=== PATIENT | female | born 1980 | race Hispanic/Latino ===

== ENCOUNTER 2020-08-04 05:30 | Observation (INO) | payer OTHER ==
[2020-08-03 11:12] LABS: BASOPHILS % (AUTO) 0.5 % (0.0-5.0); EOSINOPHILS % (AUTO) 2.3 % (0.0-8.0); HEMATOCRIT 43.9 % (36-48); LYMPHOCYTES % (AUTO) 28.7 % (21.0-51.0); MEAN CORPUSCULAR HEMOGLOBIN 29.5 pg (27.0-33.0); MEAN CORPUSCULAR VOLUME 89.2 fL (79-99); MONOCYTES % (AUTO) 6.1 % (3.0-13.0); NEUTROPHILS % (AUTO) 61.9 % (40.0-77.0); PLATELET COUNT (AUTO) 327 K/uL (130-400); RED BLOOD CELL COUNT(AUTO) 4.92 MIL/uL (4.00-5.50); RED CELL DISTRIBUTION WIDTH 12.1 % (11.0-15.5); WHITE BLOOD COUNT (AUTO) 6.1 K/uL (4.8-10.8)
[2020-08-03 15:28] VITALS: BP 157/74
[2020-08-04] VITALS (23 sets, daily range): BP systolic 103–158; BP diastolic 50–86
[~2020-08-04] VITALS: Ht 165.1 cm; Wt 93.3 kg
[2020-08-04] MEDS: CLINDAMYCIN 600MG IN 0.9% SOD 50 ML IV SCH ×2 (05:00→08:20)
[2020-08-04] MEDS: LEVOFLOXACIN 500 MG/D5W 100 ML 100 ML IV SCH ×3 (05:00→09:00)
[~2020-08-04 05:30] MED LIST: ATOR10TA PO; ERGO400C PO
[2020-08-04] MEDS ORDERED: LACTATED RINGERS 1000ML 1,000 ML IV ONE (06:58)
[2020-08-04] MEDS ORDERED: LIDOCAINE PF 2% 5ML ABBOJECT ONE (07:54)
[2020-08-04] MEDS ORDERED: ONDANSETRON HCL 4 MG/2 ML VIAL ONE (07:55)
[2020-08-04] MEDS ORDERED: MIDAZOLAM HCL 1 MG/ML 2ML VIAL ONE (07:55)
[2020-08-04] MEDS ORDERED: ROCURONIUM 10MG/1ML SYR 10 MG/ML ML ONE (07:55)
[2020-08-04] MEDS ORDERED: PROPOFOL 10 MG/ML 20ML VIAL IV ONE (07:55)
[2020-08-04] MEDS ORDERED: KETAMINE 50MG/ML SYRINGE 50 MG/ML DISP.SYRIN IV ONE (07:57)
[2020-08-04] MEDS ORDERED: FENTANYL CITRATE PF 50 MCG/1 ML 5ML AMP IV ONE ×2 (08:10)
[2020-08-04] MEDS ORDERED: DEXAMETHASONE SOD PHOSPHATE 10MG/ML 1ML VIAL ONE (08:12)
[2020-08-04] MEDS ORDERED: FENTANYL CITRATE PF 50 MCG/1 ML 2ML VIAL ONE ×2 (09:37→10:14)
[2020-08-04] MEDS ORDERED: GLYCOPYRROLATE 1 MG/5 ML SYRINGE ONE (10:12)
[2020-08-04] MEDS ORDERED: NEOSTIGMINE 5MG/5ML SYR IV ONE (10:12)
[2020-08-04] MEDS ORDERED: PHENYLEPHRINE HCL 10 MG/ML 1ML VIAL IV ONE (10:16)
[2020-08-04] MEDS ORDERED: MEPERIDINE-PF 25 MG/ML SYG ONE ×2 (10:42→10:51)
[2020-08-04] MEDS ORDERED: BISACODYL 10 MG SUPP.RECT RC PRN (12:30)
[2020-08-04] MEDS ORDERED: ACETAMINOPHEN-CODEINE 300/30MG TAB PO PRN (12:30)
[2020-08-04] MEDS ORDERED: ONDANSETRON HCL 4 MG/2 ML VIAL IVP PRN (12:30)
[2020-08-04] MEDS ORDERED: PROMETHAZINE HCL 25 MG/ML 1ML AMPULE IM PRN ×2 (12:30)
[2020-08-04] MEDS ORDERED: MEPERIDINE-PF 75 MG/ML SYG IM PRN (12:30)
[2020-08-04] MEDS: DEXTROSE 5 %-0.45 % NACL 1,000 ML IV SCH ×2 (15:02→18:47)
--- NOTE | 2020-08-04 16:15 | NUR ---
pt has the urge to void, offered the bedpan but unable to void, assisted to the bathroom, still was not able to void, pt started to feel lightheaded, assisted to the wheelchair by spouse and to bed. bladder is hard upon palpation, inserted a straight catheter using aseptic technique, emptied 800ml clear yellow urine. Addendum: 08/04/20 at 1644 by JOSE ALEJANDRO AMADOR RN Amended: Links added.
[2020-08-04] MEDS: IBUPROFEN 600 MG TABLET PO PRN (18:49)
[2020-08-04] MEDS: SIMETHICONE 80 MG TAB.CHEW PO PRN (21:56)
[2020-08-04] MEDS: DOCUSATE SODIUM 100 MG CAP PO PRN (21:56)
[2020-08-05] MEDS: IBUPROFEN 600 MG TABLET PO PRN (00:48)
[2020-08-05] MEDS: DEXTROSE 5 %-0.45 % NACL 1,000 ML IV SCH (01:40)
[2020-08-05 03:29] VITALS: BP 99/55
[2020-08-05] MEDS ORDERED: HYDROCODONE/ACETAMINOPHEN 5/325 MG TAB PO PRN ×2 (05:00→08:00)
[2020-08-05 06:34] LABS: HEMATOCRIT 34.4 % (36-48); MEAN CORPUSCULAR HEMOGLOBIN 29.1 pg (27.0-33.0); MEAN CORPUSCULAR HGB CONC 32.6 g/dL (32.0-36.0); MEAN CORPUSCULAR VOLUME 89.4 fL (79-99); RED BLOOD CELL COUNT(AUTO) 3.85 MIL/uL (4.00-5.50); RED CELL DISTRIBUTION WIDTH 12.3 % (11.0-15.5); WHITE BLOOD COUNT (AUTO) 13.1 K/uL (4.8-10.8)
[2020-08-05 07:46] VITALS: BP 117/66
[2020-08-05] MEDS ORDERED: IBUPROFEN 800 MG TAB PO PRN (08:00)
[2020-08-05] MEDS ORDERED: ACETAMINOPHEN-CODEINE 300/30MG TAB PO PRN (08:00)
--- NOTE | 2020-08-05 08:20 | NUR ---
physician roundpito - Dr. Paula at bedside, informed pt that she will be discharged this afternoon, gave discharge instructions and answered all questions. pt voiced understanding to all things discussed by Dr. Paula. Addendum: 08/05/20 at 0922 by JOSE ALEJANDRO AMADOR RN Amended: Links added.
[2020-08-05] MEDS: DOCUSATE SODIUM 100 MG CAP PO PRN (08:31)
[2020-08-05] MEDS: SIMETHICONE 80 MG TAB.CHEW PO PRN (08:31)
--- NOTE | 2020-08-05 08:41 | NUR ---
ambulating in the hallway in steady gait, accompanied by spouse Addendum: 08/05/20 at 1001 by JOSE ALEJANDRO AMADOR RN Amended: Links added.
--- NOTE | 2020-08-05 09:58 | NUR ---
report given to Cara MCCALL, for continuation of care. Addendum: 08/05/20 at 1006 by JOSE ALEJANDRO AMADOR RN Amended: Links added.
--- NOTE | 2020-08-05 11:00 | NUR ---
DISCHARGE INSTRUCTION READ AND EXPLAINED TO PATIENT. RX FOR TYLENOL #3 HANDED TO PATIENT. ADVISED PATIENT TO CONTINUE AMBULATING AND USING INCENTIVE SPIROMETER. PATIENT VERBALIZED UNDERSTANDING.
[2020-08-05 11:25] VITALS: BP 121/70
--- NOTE | 2020-08-05 12:25 | NUR ---
PATIENT LEFT UNIT VIA WHEELCHAIR WITH BELONGINGS IN HAND. PERSONAL VEHICLE USED FOR TRANSPORTATION. NO COMPLAINTS ON DISCHARGE.
== END 2020-08-05 12:25 | disposition home or self-care (01) ==
LOC: DAH 05:30 → WSH 05:31 → DAH 05:31 → WSH 11:00
PROVIDERS: ADMIT Obstetrics & Gynecology; ATTEND Obstetrics & Gynecology
DX: N92.1 Excessive and frequent menstruation with irregular cycle (principal); Z20.828 Contact with and (suspected) exposure to other viral communicable diseases; D25.9 Leiomyoma of uterus, unspecified; N73.6 Female pelvic peritoneal adhesions (postinfective); N70.11 Chronic salpingitis; K46.9 Unspecified abdominal hernia without obstruction or gangrene; K66.0 Peritoneal adhesions (postprocedural) (postinfection); N93.8 Other specified abnormal uterine and vaginal bleeding; N83.209 Unspecified ovarian cyst, unspecified side
CPT/HCPCS: 36415 ×2; 57268; 58552; 85025; 85027; 86850; 86900; 86901; 96360; 96361 ×2; 96372; A4215 ×2; A4221; A4222; A4223; A4344; A4510; A4600; A4649 ×3; A4663; C1769 ×2; C9803; G0378 ×25; J1100; J1956; J2001; J2175 ×3; J2250; J2370; J2405; J2550; J2704; J2710; J3010 ×4; J3490 ×2; J7030; J7120 ×2; U0003